=== PATIENT | female | born 1940 | race Caucasian/White ===

== ENCOUNTER 2018-06-08 11:18 | Outpatient (CLI) | payer MEDICARE, OTHER ==
[~2018-06-08 11:18] MED LIST: ASPI81TA31 PO; ATOR10TA PO; BETA1TAB19 PO; CALC-897 PO; CHOL100062 PO; DIAZ5TAB PO; DIPH25CA83 PO; DIPH50CA37 PO; EPIN0.3P3 IJ; GARLIC TABS PO; MULT-1168 PO; POTA-10 PO; SODI15DR5 EACHEYE; UBID200C18 PO; VITA400C24 PO; [UNRECOGNIZED DRUG - MIXTURE] PO
== END 2018-06-08 23:59 | disposition home or self-care (01) ==
LOC: LAB 11:18
DX: Z01.89 Encounter for other specified special examinations (principal)
CPT/HCPCS: 36415